=== PATIENT | male | born 1955 | race Caucasian/White ===

== ENCOUNTER → 2016-04-30 | Outpatient (CLI) | payer BC, MEDICARE | LOC: LAB 07:32 | DX: E11.9 Type 2 diabetes mellitus without complications (principal); I10 Essential (primary) hypertension ==

== ENCOUNTER → 2016-07-27 | Outpatient (CLI) | payer BC, MEDICARE | LOC: LAB 08:10 | DX: Z00.00 Encounter for general adult medical examination without abnormal findings (principal); E11.9 Type 2 diabetes mellitus without complications; Z12.5 Encounter for screening for malignant neoplasm of prostate; E78.2 Mixed hyperlipidemia ==

== ENCOUNTER → 2016-08-03 | Outpatient (CLI) | payer BC, MEDICARE | LOC: LAB 07:26 | DX: Z86.39 Personal history of other endocrine, nutritional and metabolic disease (principal) ==

== ENCOUNTER → 2016-08-30 | Day surgery (SDC) | payer BC, MEDICARE | LOC: MSO 07:12 | DX: Z12.11 Encounter for screening for malignant neoplasm of colon (principal); Z80.0 Family history of malignant neoplasm of digestive organs; D12.2 Benign neoplasm of ascending colon; Z87.891 Personal history of nicotine dependence; E11.9 Type 2 diabetes mellitus without complications | CPT/HCPCS: 00810; J3010; J7042 ==

== ENCOUNTER → 2016-10-21 | Outpatient (CLI) | payer BC, MEDICARE | LOC: LAB 14:35 | DX: E11.9 Type 2 diabetes mellitus without complications (principal) ==

== ENCOUNTER → 2017-04-27 | Outpatient (CLI) | payer BC, MEDICARE ==
[2017-04-27 09:04] LABS: HEMATOCRIT 45.3 % (42.0-52.0); HEMOGLOBIN 14.3 g/dL (13.5-18.0); MEAN PLATELET VOLUME 10.7 fl (7.4-10.4); RED BLOOD COUNT 5.08 M/mm3 (4.20-5.60); RED CELL DISTRIBUTION WIDTH 15.4 % (11.5-14.5); WHITE BLOOD COUNT 6.4 K/mm3 (4.8-10.8)
== END ==
LOC: LAB 07:26
PROVIDERS: Family Medicine
DX: D64.9 Anemia, unspecified (principal); E11.9 Type 2 diabetes mellitus without complications

== ENCOUNTER → 2017-05-05 | Outpatient (CLI) | payer BC, MEDICARE | LOC: MAMMO 12:13 → RAD 12:13 | DX: R59.1 Generalized enlarged lymph nodes (principal) ==

== ENCOUNTER → 2017-11-22 | Outpatient (CLI) | payer BC, MEDICARE ==
[2017-11-22 08:07] LABS: ALBUMIN 3.9 g/dL (3.5-5.0); BUN/CREATININE RATIO 34.8 (6.0-26.0); CALCIUM 9.2 mg/dL (8.4-10.2); POTASSIUM 4.4 mmol/L (3.6-5.0); TOTAL BILIRUBIN 0.4 mg/dL (0.2-1.3)
[2017-11-22 08:23] LABS: HEMATOCRIT 41.3 % (42.0-52.0); HEMOGLOBIN 13.4 g/dL (13.5-18.0); MEAN PLATELET VOLUME 10.6 fl (7.4-10.4); RED BLOOD COUNT 4.55 M/mm3 (4.20-5.60); WHITE BLOOD COUNT 6.4 K/mm3 (4.8-10.8)
[2017-11-22 22:28] LABS: TESTOSTERONE 373 ng/dL (221-716)
== END ==
LOC: LAB 07:33
PROVIDERS: Family Medicine
DX: Z12.5 Encounter for screening for malignant neoplasm of prostate (principal); Z00.00 Encounter for general adult medical examination without abnormal findings; E11.9 Type 2 diabetes mellitus without complications; E78.2 Mixed hyperlipidemia; D64.9 Anemia, unspecified; Z87.438 Personal history of other diseases of male genital organs

== ENCOUNTER → 2017-11-30 | Outpatient (CLI) | payer BC, MEDICARE | LOC: RAD 09:20 | DX: N63.31 Unspecified lump in axillary tail of the right breast (principal) ==

== ENCOUNTER → 2018-01-09 | Outpatient (CLI) | payer BC, MEDICARE | LOC: RAD 12:00 | DX: M50.222 Other cervical disc displacement at C5-C6 level (principal); M47.892 Other spondylosis, cervical region; M48.02 Spinal stenosis, cervical region; M51.36 Other intervertebral disc degeneration, lumbar region ==

== ENCOUNTER 2018-04-05 09:00 | Outpatient (RCR) | payer BC, MEDICARE | END 2018-04-05 09:30 | disposition home or self-care (01) | LOC: PT 09:00 | DX: M54.12 Radiculopathy, cervical region (principal) | CPT/HCPCS: G8978-GP; G8979-GP ==

== ENCOUNTER → 2018-04-28 | Outpatient (CLI) | payer BC, MEDICARE ==
[2018-04-28 08:37] LABS: EOS # 0.2 (0.04-0.40); EOS % 3.2 % (0.0-4.0); HEMATOCRIT 40.1 % (42.0-52.0); HEMOGLOBIN 12.8 g/dL (13.5-18.0); LYMPH# 1.6 (1.50-4.00); MEAN CELL VOLUME 88 fl (78-100); MEAN CORPUSCULAR HEMOGLOBIN 28 pg (27-31); MEAN CORPUSCULAR HGB CONC 32 g/dL (33-37); MEAN PLATELET VOLUME 10.6 fl (7.4-10.4); MONO # 0.8 (0.20-0.80); NEU # 4.9 (1.40-6.50); PLATELET COUNT 235 K/mm3 (130-400); RED BLOOD COUNT 4.54 M/mm3 (4.20-5.60); RED CELL DISTRIBUTION WIDTH 13.9 % (11.5-14.5); WHITE BLOOD COUNT 7.6 K/mm3 (4.8-10.8)
[2018-04-28 08:49] LABS: POTASSIUM 4.2 mmol/L (3.6-5.0); TOTAL BILIRUBIN 0.6 mg/dL (0.2-1.3); TOTAL PROTEIN 7.3 g/dL (6.3-8.2)
== END ==
LOC: LAB 08:24
PROVIDERS: Nurse Practitioner
DX: R10.9 Unspecified abdominal pain (principal)

== ENCOUNTER → 2018-05-01 | Outpatient (CLI) | payer BC, MEDICARE | LOC: RAD 07:03 | DX: R10.11 Right upper quadrant pain (principal) ==

== ENCOUNTER 2018-11-22 13:30 | Outpatient (RCR) | payer BC, MEDICARE | END 2018-11-22 14:00 | LOC: PT 13:30 | DX: M54.41 Lumbago with sciatica, right side (principal); M54.42 Lumbago with sciatica, left side; G89.29 Other chronic pain ==

== ENCOUNTER → 2018-11-27 | Outpatient (CLI) | payer BC, MEDICARE ==
[2018-11-27 07:47] LABS: EOS # 0.2 (0.04-0.40); EOS % 4.5 % (0.0-4.0); HEMATOCRIT 43.4 % (42.0-52.0); HEMOGLOBIN 13.8 g/dL (13.5-18.0); LYMPH# 1.6 (1.50-4.00); MEAN CELL VOLUME 90 fl (78-100); MEAN CORPUSCULAR HEMOGLOBIN 29 pg (27-31); MEAN CORPUSCULAR HGB CONC 32 g/dL (33-37); MEAN PLATELET VOLUME 10.6 fl (7.4-10.4); MONO # 0.5 (0.20-0.80); NEU # 2.6 (1.40-6.50); PLATELET COUNT 200 K/mm3 (130-400); RED BLOOD COUNT 4.84 M/mm3 (4.20-5.60); RED CELL DISTRIBUTION WIDTH 14.5 % (11.5-14.5); WHITE BLOOD COUNT 4.9 K/mm3 (4.8-10.8)
[2018-11-27 09:16] LABS: ALBUMIN 3.8 g/dL (3.4-4.8)
[2018-11-27 09:17] LABS: CALCIUM 9.6 mg/dL (8.3-10.5)
[2018-11-27 09:18] LABS: TOTAL PROTEIN 7.3 g/dL (6.2-8.1)
[2018-11-27 09:20] LABS: TOTAL BILIRUBIN 0.4 mg/dL (0.2-1.2)
== END ==
LOC: LAB 07:30
PROVIDERS: Family Medicine
DX: Z00.00 Encounter for general adult medical examination without abnormal findings (principal); Z12.5 Encounter for screening for malignant neoplasm of prostate; E78.2 Mixed hyperlipidemia; E11.9 Type 2 diabetes mellitus without complications

== ENCOUNTER → 2019-01-02 | Outpatient (CLI) | payer BC, MEDICARE | LOC: LAB 09:51 | DX: R53.83 Other fatigue (principal) ==

== ENCOUNTER → 2019-01-03 | Outpatient (CLI) | payer BC, MEDICARE | LOC: RAD 07:56 | DX: M48.07 Spinal stenosis, lumbosacral region (principal); M51.36 Other intervertebral disc degeneration, lumbar region ==

== ENCOUNTER → 2019-05-15 | Outpatient (CLI) | payer BC, MEDICARE | LOC: LAB 12:10 | DX: E11.9 Type 2 diabetes mellitus without complications (principal) ==

== ENCOUNTER → 2019-05-23 | Outpatient (CLI) | payer BC, MEDICARE | LOC: LAB 10:28 | DX: E29.1 Testicular hypofunction (principal) ==

== ENCOUNTER 2020-03-23 08:44 | Emergency (ER) | payer BC, MEDICARE ==
[~2020-03-23] VITALS: Ht 172.7 cm; Wt 113.6 kg
[2020-03-23] MEDS ORDERED: LISINOPRIL40 MG PO (08:55)
[2020-03-23] MEDS ORDERED: SIMVASTATIN20 M1 PO (08:55)
[2020-03-23] MEDS ORDERED: METFOMIN HYDRO850 MG PO (08:55)
[2020-03-23] MEDS ORDERED: MYRBETRIQ50 MG PO (08:56)
[2020-03-23] MEDS ORDERED: LANTUS SOLOS100 U/ML SQ (08:56)
[2020-03-23] MEDS ORDERED: PIOGLITAZONE HY45 MG PO (08:56)
[2020-03-23 09:29] LABS: HEMATOCRIT 47.1 % (42.0-52.0); HEMOGLOBIN 14.6 g/dL (13.5-18.0); MEAN CELL VOLUME 83 fl (78-100); MEAN CORPUSCULAR HEMOGLOBIN 26 pg (27-31); MEAN CORPUSCULAR HGB CONC 31 g/dL (33-37); MEAN PLATELET VOLUME 10.2 fl (7.4-10.4); PLATELET COUNT 193 K/mm3 (130-400); RED BLOOD COUNT 5.69 M/mm3 (4.20-5.60); WHITE BLOOD COUNT 9.7 K/mm3 (4.8-10.8)
[2020-03-23 09:39] LABS: POTASSIUM 4.6 mmol/L (3.5-5.1)
[2020-03-23 09:40] LABS: CALCIUM 9.6 mg/dL (8.3-10.5)
[2020-03-23 09:43] LABS: TOTAL BILIRUBIN 0.6 mg/dL (0.2-1.2)
[2020-03-23 09:54] LABS: LYMPHOCYTE 12 % (20-51); MONOCYTE 9 % (3-10); NEUTROPHILS 76 % (42-75)
[2020-03-23 09:54] LABS: URINE APPEARANCE CLOUDY; URINE COLOR YELLOW; URINE PROTEIN(semi-quant) TRACE mg/dL (NEGATIVE)
[2020-03-23 09:55] LABS: URINE BILIRUBIN NEGATIVE (NEGATIVE); URINE BLOOD 250 ery/uL (NEGATIVE); URINE GLUCOSE NEGATIVE (NEGATIVE); URINE KETONE NEGATIVE (NEGATIVE); URINE LEUKOCYTE ESTERASE 1+ (NEGATIVE); URINE MUCUS PRESENT (NOT PRESENT); URINE NITRATE NEGATIVE (NEGATIVE); URINE UROBILINOGEN NORMAL (NORMAL)
[2020-03-23] MEDS ORDERED: PERCOCET 325 MG1 TA2 PO (11:55)
[2020-03-23 12:07] VITALS: BP 159/96
== END 2020-03-23 12:07 | disposition home or self-care (01) ==
LOC: ED 08:44
PROVIDERS: Family Medicine
DX: N20.1 Calculus of ureter (principal); E11.9 Type 2 diabetes mellitus without complications; I10 Essential (primary) hypertension; E78.5 Hyperlipidemia, unspecified; Z88.6 Allergy status to analgesic agent; Z79.4 Long term (current) use of insulin
CPT/HCPCS: J0696; J1885; Q9967

== ENCOUNTER → 2020-04-08 | Outpatient (CLI) | payer BC, MEDICARE ==
[2020-03-23 12:07] VITALS: BP 159/96
[~2020-04-08] MED LIST: LANTUS SOLOS100 U/ML SQ; LISINOPRIL40 MG PO; METFOMIN HYDRO850 MG PO; MYRBETRIQ50 MG PO; PERCOCET 325 MG1 TA2 PO; PIOGLITAZONE HY45 MG PO; SIMVASTATIN20 M1 PO
== END ==
LOC: LAB 11:03
DX: E11.9 Type 2 diabetes mellitus without complications (principal)

== ENCOUNTER → 2020-04-28 | Outpatient (CLI) | payer BC, MEDICARE | LOC: CARDREHAB 10:30 | DX: R07.9 Chest pain, unspecified (principal) ==

== ENCOUNTER → 2020-05-01 | Outpatient (CLI) | payer BC, MEDICARE | LOC: RAD 17:45 | DX: M67.814 Other specified disorders of tendon, left shoulder (principal); M75.22 Bicipital tendinitis, left shoulder ==

== ENCOUNTER 2020-05-29 08:23 | Outpatient (RCR) | payer BC, MEDICARE | END 2020-06-25 16:30 | disposition home or self-care (01) | LOC: PT 08:23 | DX: M67.814 Other specified disorders of tendon, left shoulder (principal) ==

== ENCOUNTER → 2020-06-03 | Outpatient (CLI) | payer BC, MEDICARE ==
[~2020-06-03] MED LIST changes: +ADULT ASPIRIN R81 MG PO; +CEPHALEXIN500 M1 PO; +NORCO 325 MG-51 TA1 PO
== END ==
LOC: RAD 10:14
DX: M25.552 Pain in left hip (principal)

== ENCOUNTER 2021-01-11 02:46 | Emergency (ER) | payer BC, MEDICARE ==
[~2021-01-11] VITALS: Ht 172.7 cm; Wt 109.1 kg
[~2021-01-11 02:46] MED LIST changes: -ADULT ASPIRIN R81 MG PO; -CEPHALEXIN500 M1 PO; -NORCO 325 MG-51 TA1 PO
[2021-01-11] MEDS ORDERED: ADULT ASPIRIN R81 MG PO (03:00)
[2021-01-11 04:19] LABS: BASO # 0.03 (0.02-0.10); EOS # 0.24 (0.04-0.40); EOS % 3.5 % (0.0-4.0); HEMATOCRIT 40.5 % (42.0-52.0); HEMOGLOBIN 12.7 g/dL (13.5-18.0); LYMPH# 1.26 (1.50-4.00); MEAN CELL VOLUME 86 fl (78-100); MEAN CORPUSCULAR HEMOGLOBIN 27 pg (27-31); MEAN CORPUSCULAR HGB CONC 31 g/dL (33-37); MEAN PLATELET VOLUME 9.8 fl (7.4-10.4); MONO # 0.69 (0.20-0.80); NEU # 4.61 (1.40-6.50); PLATELET COUNT 173 K/mm3 (130-400); RED CELL DISTRIBUTION WIDTH 17.7 % (11.5-14.5); WHITE BLOOD COUNT 6.9 K/mm3 (4.8-10.8)
[2021-01-11] MEDS ORDERED: CEPHALEXIN500 M1 PO (04:51)
[2021-01-11] MEDS ORDERED: NORCO 325 MG-51 TA1 PO (04:51)
[2021-01-11 05:02] VITALS: BP 158/89
== END 2021-01-11 05:02 | disposition home or self-care (01) ==
LOC: ED 02:46
PROVIDERS: Family Medicine
DX: M70.21 Olecranon bursitis, right elbow (principal); I10 Essential (primary) hypertension; E11.9 Type 2 diabetes mellitus without complications; Z79.84 Long term (current) use of oral hypoglycemic drugs; Z79.899 Other long term (current) drug therapy; Z79.4 Long term (current) use of insulin; W22.8XXA Striking against or struck by other objects, initial encounter
CPT/HCPCS: J1885

== ENCOUNTER → 2021-01-21 | Outpatient (CLI) | payer BC, MEDICARE ==
[~2021-01-21] MED LIST changes: +ADULT ASPIRIN R81 MG PO; +CEPHALEXIN500 M1 PO; +NORCO 325 MG-51 TA1 PO
== END ==
LOC: RAD 11:05
DX: S59.901A Unspecified injury of right elbow, initial encounter (principal)

== ENCOUNTER → 2021-02-06 | Outpatient (CLI) | payer BC, MEDICARE ==
[2021-02-06 16:10] LABS: BASO # 0.05 K/mm3 (0.02-0.10); EOS # 0.26 K/mm3 (0.04-0.40); EOS % 4.5 % (0.0-4.0); HEMOGLOBIN 14.1 g/dL (13.5-18.0); LYMPH# 1.46 K/mm3 (1.50-4.00); MEAN CELL VOLUME 86 fl (78-100); MEAN CORPUSCULAR HEMOGLOBIN 27 pg (27-31); MEAN CORPUSCULAR HGB CONC 31 g/dL (33-37); MEAN PLATELET VOLUME 10.3 fl (7.4-10.4); MONO # 0.57 K/mm3 (0.20-0.80); NEU # 3.37 K/mm3 (1.40-6.50); PLATELET COUNT 153 K/mm3 (130-400); RED BLOOD COUNT 5.24 M/mm3 (4.20-5.60); RED CELL DISTRIBUTION WIDTH 16.7 % (11.5-14.5); WHITE BLOOD COUNT 5.7 K/mm3 (4.8-10.8)
[2021-02-06 16:19] LABS: POTASSIUM 4.6 mmol/L (3.5-5.1)
[2021-02-06 16:20] LABS: CALCIUM 10.4 mg/dL (8.3-10.5)
[2021-02-06 16:22] LABS: TOTAL PROTEIN 7.4 g/dL (6.2-8.1)
[2021-02-06 16:23] LABS: TOTAL BILIRUBIN 0.4 mg/dL (0.2-1.2)
== END ==
LOC: LAB 15:54
PROVIDERS: Family Medicine
DX: Z00.00 Encounter for general adult medical examination without abnormal findings (principal); E11.9 Type 2 diabetes mellitus without complications; E78.5 Hyperlipidemia, unspecified

== ENCOUNTER → 2021-02-10 | Outpatient (CLI) | payer BC, MEDICARE | LOC: RAD 08:57 | DX: S59.901A Unspecified injury of right elbow, initial encounter (principal); R60.0 Localized edema; M67.823 Other specified disorders of tendon, right elbow ==

== ENCOUNTER → 2021-02-23 | Day surgery (SDC) | payer BC, MEDICARE | END | disposition home or self-care (01) | LOC: MSO 07:33 | DX: Z12.11 Encounter for screening for malignant neoplasm of colon (principal); I10 Essential (primary) hypertension; G47.33 Obstructive sleep apnea (adult) (pediatric); M54.9 Dorsalgia, unspecified; E11.9 Type 2 diabetes mellitus without complications; E66.01 Morbid (severe) obesity due to excess calories; Z79.82 Long term (current) use of aspirin; Z79.899 Other long term (current) drug therapy; Z79.84 Long term (current) use of oral hypoglycemic drugs; Z80.0 Family history of malignant neoplasm of digestive organs | CPT/HCPCS: G0105; 00812; J2704; J3010; J7120 ==

== ENCOUNTER → 2021-05-19 | Outpatient (CLI) | payer BC, MEDICARE | LOC: RAD 05-15 13:00 | DX: I12.9 Hypertensive chronic kidney disease with stage 1 through stage 4 chronic kidney disease, or unspecified chronic kidney disease (principal); E11.22 Type 2 diabetes mellitus with diabetic chronic kidney disease; N18.31 Chronic kidney disease, stage 3a; E11.21 Type 2 diabetes mellitus with diabetic nephropathy ==

== ENCOUNTER → 2021-06-19 | Outpatient (CLI) | payer BC, MEDICARE | LOC: RAD 08:56 | DX: M25.511 Pain in right shoulder (principal); W19.XXXA Unspecified fall, initial encounter ==

== ENCOUNTER → 2021-06-29 | Outpatient (CLI) | payer BC, MEDICARE ==
[2021-06-29 11:59] LABS: BASO # 0.06 K/mm3 (0.02-0.10); EOS # 0.21 K/mm3 (0.04-0.40); EOS % 3.7 % (0.0-4.0); HEMOGLOBIN 12.8 g/dL (13.5-18.0); LYMPH# 1.28 K/mm3 (1.50-4.00); MEAN CELL VOLUME 88 fl (78-100); MEAN CORPUSCULAR HEMOGLOBIN 26 pg (27-31); MEAN CORPUSCULAR HGB CONC 30 g/dL (33-37); MEAN PLATELET VOLUME 10.5 fl (7.4-10.4); MONO # 0.64 K/mm3 (0.20-0.80); NEU # 3.46 K/mm3 (1.40-6.50); PLATELET COUNT 241 K/mm3 (130-400); RED BLOOD COUNT 4.87 M/mm3 (4.20-5.60); RED CELL DISTRIBUTION WIDTH 14.2 % (11.5-14.5); WHITE BLOOD COUNT 5.7 K/mm3 (4.8-10.8)
[2021-06-29 12:38] LABS: ALBUMIN 3.9 g/dL (3.4-4.8); POTASSIUM 4.4 mmol/L (3.5-5.1)
[2021-06-29 12:39] LABS: CALCIUM 9.6 mg/dL (8.3-10.5)
[2021-06-29 12:41] LABS: TOTAL PROTEIN 6.7 g/dL (6.2-8.1)
[2021-06-29 12:42] LABS: TOTAL BILIRUBIN 0.4 mg/dL (0.2-1.2)
[2021-06-29 13:45] LABS: URINE APPEARANCE CLEAR; URINE COLOR YELLOW
[2021-06-29 13:46] LABS: URINE BILIRUBIN NEGATIVE (NEGATIVE); URINE BLOOD NEGATIVE (NEGATIVE); URINE GLUCOSE NEGATIVE (NEGATIVE); URINE KETONE TR (NEGATIVE); URINE LEUKOCYTE ESTERASE NEGATIVE (NEGATIVE); URINE MUCUS PRESENT (NOT PRESENT); URINE NITRATE NEGATIVE (NEGATIVE); URINE PROTEIN(semi-quant) 1+ (NEGATIVE); URINE UROBILINOGEN NORMAL (NORMAL)
== END ==
LOC: LAB 07:44
PROVIDERS: Internal Medicine Nephrology
DX: I12.9 Hypertensive chronic kidney disease with stage 1 through stage 4 chronic kidney disease, or unspecified chronic kidney disease (principal); N18.31 Chronic kidney disease, stage 3a; E11.21 Type 2 diabetes mellitus with diabetic nephropathy

== ENCOUNTER → 2021-07-13 | Outpatient (CLI) | payer BC, MEDICARE | LOC: LAB 13:58 | DX: E11.9 Type 2 diabetes mellitus without complications (principal) ==

== ENCOUNTER → 2021-07-29 | Outpatient (CLI) | payer BC, MEDICARE ==
[2021-07-29 10:58] LABS: BASO # 0.04 K/mm3 (0.02-0.10); EOS % 2.8 % (0.0-4.0); HEMATOCRIT 42.7 % (42.0-52.0); HEMOGLOBIN 13.2 g/dL (13.5-18.0); LYMPH# 1.27 K/mm3 (1.50-4.00); MEAN CELL VOLUME 84 fl (78-100); MEAN CORPUSCULAR HEMOGLOBIN 26 pg (27-31); MEAN CORPUSCULAR HGB CONC 31 g/dL (33-37); MONO # 0.83 K/mm3 (0.20-0.80); NEU # 4.77 K/mm3 (1.40-6.50); PLATELET COUNT 226 K/mm3 (130-400); RED BLOOD COUNT 5.06 M/mm3 (4.20-5.60); RED CELL DISTRIBUTION WIDTH 15.2 % (11.5-14.5); WHITE BLOOD COUNT 7.1 K/mm3 (4.8-10.8)
[2021-07-29 11:00] LABS: CALCIUM 10.1 mg/dL (8.3-10.5)
[2021-07-29 11:03] LABS: TOTAL BILIRUBIN 0.5 mg/dL (0.2-1.2)
[2021-07-29 14:31] LABS: PROTHROMBIN TIME 10.2 SECONDS (9.0-12.0)
== END ==
LOC: LAB 09:43
PROVIDERS: Family Medicine
DX: Z11.9 Encounter for screening for infectious and parasitic diseases, unspecified (principal); Z01.89 Encounter for other specified special examinations; E11.9 Type 2 diabetes mellitus without complications; M51.36 Other intervertebral disc degeneration, lumbar region; E78.2 Mixed hyperlipidemia; E66.9 Obesity, unspecified; M19.90 Unspecified osteoarthritis, unspecified site; F33.1 Major depressive disorder, recurrent, moderate; J30.2 Other seasonal allergic rhinitis; G47.30 Sleep apnea, unspecified

== ENCOUNTER 2021-08-21 09:07 | Outpatient (RCR) | payer MEDICARE, BC | END 2021-09-08 | disposition still patient (30) | LOC: PT | DX: S46.011D Strain of muscle(s) and tendon(s) of the rotator cuff of right shoulder, subsequent encounter (principal); X58.XXXD Exposure to other specified factors, subsequent encounter ==

== ENCOUNTER → 2021-09-08 | Outpatient (CLI) | payer MEDICARE, BC | LOC: RAD 09:35 | DX: S89.92XA Unspecified injury of left lower leg, initial encounter (principal); X58.XXXA Exposure to other specified factors, initial encounter ==

== ENCOUNTER 2021-09-09 11:48 | Outpatient (RCR) | payer MEDICARE, BC | END 2021-10-08 | disposition still patient (30) | LOC: PT | DX: S46.011D Strain of muscle(s) and tendon(s) of the rotator cuff of right shoulder, subsequent encounter (principal); X58.XXXD Exposure to other specified factors, subsequent encounter ==

== ENCOUNTER 2021-10-09 08:24 | Outpatient (RCR) | payer MEDICARE, BC | END 2021-11-08 | disposition still patient (30) | LOC: PT | DX: S46.011D Strain of muscle(s) and tendon(s) of the rotator cuff of right shoulder, subsequent encounter (principal); X58.XXXD Exposure to other specified factors, subsequent encounter ==

== ENCOUNTER 2021-11-09 07:59 | Outpatient (RCR) | payer MEDICARE, BC | END 2021-12-08 13:41 | disposition home or self-care (01) | LOC: PT 07:59 | DX: S46.011D Strain of muscle(s) and tendon(s) of the rotator cuff of right shoulder, subsequent encounter (principal); X58.XXXD Exposure to other specified factors, subsequent encounter ==

== ENCOUNTER → 2021-12-11 | Outpatient (CLI) | payer MEDICARE, BC ==
[2021-12-11 10:08] LABS: BASO # 0.06 K/mm3 (0.02-0.10); EOS # 0.24 K/mm3 (0.04-0.40); EOS % 4.1 % (0.0-4.0); HEMATOCRIT 46.8 % (42.0-52.0); HEMOGLOBIN 14.6 g/dL (13.5-18.0); LYMPH# 1.24 K/mm3 (1.50-4.00); MEAN CELL VOLUME 88 fl (78-100); MEAN CORPUSCULAR HEMOGLOBIN 27 pg (27-31); MEAN CORPUSCULAR HGB CONC 31 g/dL (33-37); MEAN PLATELET VOLUME 10.1 fl (7.4-10.4); MONO # 0.67 K/mm3 (0.20-0.80); NEU # 3.56 K/mm3 (1.40-6.50); PLATELET COUNT 174 K/mm3 (130-400); RED BLOOD COUNT 5.33 M/mm3 (4.20-5.60); RED CELL DISTRIBUTION WIDTH 16.6 % (11.5-14.5); WHITE BLOOD COUNT 5.8 K/mm3 (4.8-10.8)
== END ==
LOC: LAB 09:37
PROVIDERS: Urology
DX: R35.0 Frequency of micturition (principal); R35.1 Nocturia; E29.1 Testicular hypofunction

== ENCOUNTER → 2022-02-11 | Outpatient (CLI) | payer MEDICARE, BC ==
[2022-02-11 08:00] LABS: BASO # 0.02 K/mm3 (0.02-0.10); EOS # 0.18 K/mm3 (0.04-0.40); EOS % 3.6 % (0.0-4.0); HEMATOCRIT 48.4 % (42.0-52.0); HEMOGLOBIN 15.1 g/dL (13.5-18.0); LYMPH# 1.05 K/mm3 (1.50-4.00); MEAN CELL VOLUME 91 fl (78-100); MEAN CORPUSCULAR HEMOGLOBIN 28 pg (27-31); MEAN CORPUSCULAR HGB CONC 31 g/dL (33-37); MEAN PLATELET VOLUME 10.8 fl (7.4-10.4); MONO # 0.62 K/mm3 (0.20-0.80); NEU # 3.14 K/mm3 (1.40-6.50); PLATELET COUNT 171 K/mm3 (130-400); RED BLOOD COUNT 5.32 M/mm3 (4.20-5.60); RED CELL DISTRIBUTION WIDTH 15.5 % (11.5-14.5)
[2022-02-11 08:03] LABS: POTASSIUM 4.7 mmol/L (3.5-5.1)
[2022-02-11 08:04] LABS: CALCIUM 9.7 mg/dL (8.3-10.5)
[2022-02-11 08:07] LABS: TOTAL BILIRUBIN 0.6 mg/dL (0.2-1.2)
== END ==
LOC: LAB 07:36
PROVIDERS: Family Medicine
DX: Z00.00 Encounter for general adult medical examination without abnormal findings (principal); E29.1 Testicular hypofunction; E11.9 Type 2 diabetes mellitus without complications

== ENCOUNTER 2022-11-29 10:57 | Outpatient (RCR) | payer MEDICARE, BC | END 2022-12-09 | disposition home or self-care (01) | LOC: PT | DX: Z98.890 Other specified postprocedural states (principal) ==

== ENCOUNTER 2023-04-12 10:07 | Outpatient (RCR) | payer MEDICARE, BC | END 2023-05-11 17:34 | disposition home or self-care (01) | LOC: OPPGERO 10:07 | DX: F43.23 Adjustment disorder with mixed anxiety and depressed mood (principal) ==

== ENCOUNTER → 2023-04-12 | Outpatient (CLI) | payer MEDICARE, BC | LOC: LAB 07:06 | DX: Z00.00 Encounter for general adult medical examination without abnormal findings (principal) ==

== ENCOUNTER → 2023-04-14 | Outpatient (CLI) | payer MEDICARE, BC | LOC: LAB 09:31 | DX: E29.1 Testicular hypofunction (principal) ==

== ENCOUNTER → 2023-07-04 | Outpatient (CLI) | payer MEDICARE, BC ==
[2023-07-04 07:42] LABS: CALCIUM 10.1 mg/dL (8.3-10.5)
== END ==
LOC: LAB 07:16
PROVIDERS: Internal Medicine Nephrology
DX: I12.9 Hypertensive chronic kidney disease with stage 1 through stage 4 chronic kidney disease, or unspecified chronic kidney disease (principal); N18.31 Chronic kidney disease, stage 3a

== ENCOUNTER → 2023-09-14 | Outpatient (CLI) | payer MEDICARE, BC ==
--- NOTE | 2023-10-25 15:17 | NUR ---
Downtime: An Electronic Health Record (EHR) downtime event occurred during this patient's care. For legal medical record information generated during the downtime period, please reference the patient's legal medical record. Paper or scanned documentation has been incorporated into the legal medical record which is maintained in accordance with Health Information Management (HIM) and record retention policies.
== END ==
LOC: LAB 14:27
DX: R06.00 Dyspnea, unspecified (principal); R07.89 Other chest pain

== ENCOUNTER → 2023-12-14 | Outpatient (CLI) | payer MEDICARE, BC | LOC: RAD 15:11 | DX: R06.02 Shortness of breath (principal) ==

== ENCOUNTER → 2024-02-28 | Outpatient (CLI) | payer MEDICARE, BC ==
[2024-02-28 07:42] LABS: BASO # 0.04 K/mm3 (0.02-0.10); EOS # 0.17 K/mm3 (0.04-0.40); EOS % 2.6 % (0.0-4.0); HEMATOCRIT 53.1 % (42.0-52.0); HEMOGLOBIN 16.9 g/dL (13.5-18.0); LYMPH# 1.56 K/mm3 (1.50-4.00); MEAN CELL VOLUME 93 fl (78-100); MEAN CORPUSCULAR HEMOGLOBIN 30 pg (27-31); MEAN CORPUSCULAR HGB CONC 32 g/dL (33-37); MEAN PLATELET VOLUME 10.3 fl (7.4-10.4); MONO # 0.62 K/mm3 (0.20-0.80); NEU # 4.11 K/mm3 (1.40-6.50); PLATELET COUNT 185 K/mm3 (130-400); RED BLOOD COUNT 5.71 M/mm3 (4.20-5.60); RED CELL DISTRIBUTION WIDTH 12.5 % (11.5-14.5); WHITE BLOOD COUNT 6.5 K/mm3 (4.8-10.8)
== END ==
LOC: LAB 07:30
PROVIDERS: Student in an Organized Health Care Education/Training Program
DX: E29.1 Testicular hypofunction (principal)

== ENCOUNTER 2024-05-31 10:03 | Emergency (ER) | payer MEDICARE, BC ==
[~2024-05-31] VITALS: Ht 175.3 cm; Wt 109.1 kg
[2024-05-31 10:37] LABS: BASO # 0.02 K/mm3 (0.02-0.10); EOS # 0.17 K/mm3 (0.04-0.40); EOS % 2.2 % (0.0-4.0); HEMATOCRIT 55.4 % (42.0-52.0); HEMOGLOBIN 17.5 g/dL (13.5-18.0); LYMPH# 1.62 K/mm3 (1.50-4.00); MEAN CELL VOLUME 88 fl (78-100); MEAN CORPUSCULAR HEMOGLOBIN 28 pg (27-31); MEAN CORPUSCULAR HGB CONC 32 g/dL (33-37); MEAN PLATELET VOLUME 10.4 fl (7.4-10.4); MONO # 0.82 K/mm3 (0.20-0.80); NEU # 5.08 K/mm3 (1.40-6.50); PLATELET COUNT 211 K/mm3 (130-400); RED CELL DISTRIBUTION WIDTH 16.4 % (11.5-14.5); WHITE BLOOD COUNT 7.7 K/mm3 (4.8-10.8)
[2024-05-31 10:43] LABS: SODIUM 141 mmol/L (136-145)
[2024-05-31 10:44] LABS: CALCIUM 9.7 mg/dL (8.3-10.5)
[2024-05-31 10:45] LABS: GLUCOSE 144 mg/dL (75-110); TOTAL PROTEIN 7.2 g/dL (6.2-8.1)
[2024-05-31 10:46] LABS: CARBON DIOXIDE 25 mmol/L (23-31)
[2024-05-31 10:47] LABS: TOTAL BILIRUBIN 0.7 mg/dL (0.2-1.2)
[2024-05-31 10:51] LABS: AST-SGOT 17 U/L (5-34)
[2024-05-31 10:52] LABS: ALT/SGPT 17 U/L (0-55); LIPASE 38 U/L (8-78)
[2024-05-31 10:58] LABS: TROPONIN-I < 0.030 ng/mL (0.00-0.033)
[2024-05-31 11:33] VITALS: BP 150/97
== END 2024-05-31 11:39 | disposition home or self-care (01) ==
LOC: ED 10:03
PROVIDERS: Nurse Practitioner Family
DX: R07.9 Chest pain, unspecified (principal); E66.9 Obesity, unspecified; E11.65 Type 2 diabetes mellitus with hyperglycemia; Z68.35 Body mass index [BMI] 35.0-35.9, adult; Z79.84 Long term (current) use of oral hypoglycemic drugs; Z79.82 Long term (current) use of aspirin

== ENCOUNTER → 2024-07-02 | Outpatient (CLI) | payer MEDICARE, BC ==
[2024-07-02 07:20] LABS: CALCIUM 9.7 mg/dL (8.3-10.5)
== END ==
LOC: LAB 06:58
PROVIDERS: Internal Medicine Nephrology
DX: I12.9 Hypertensive chronic kidney disease with stage 1 through stage 4 chronic kidney disease, or unspecified chronic kidney disease (principal); N18.31 Chronic kidney disease, stage 3a